=== PATIENT | female | born 1955 | race Caucasian/White ===

== ENCOUNTER 2017-08-26 20:42 | Inpatient (IN) | payer OTHER ==
--- NOTE | 2017-08-26 20:59 | CPEKG ---
Heart Rate: 102 RR Interval: 588 P-R Interval: 172 QRSD Interval: 94 QT Interval: 368 QTC Interval: 480 P [place]: 69 QRS [place]: 172 T Wave [place]: 67 EKG Severity - BORDERLINE ECG - EKG Impression: SINUS TACHYCARDIA EKG Impression: CONSIDER RIGHT VENTRICULAR HYPERTROPHY Electronically Signed By: Eric Saenz 26-Aug-2017 21:26:53
--- NOTE | 2017-08-26 21:09 | EDPHY ---
H & P Stated Complaint: chest pressure and constipation Time Seen by Provider: 08/26/17 21:09 - Personal History Current Tetanus/Diphtheria Vaccine: Yes Current Tetanus Diphtheria and Acellular Pertussis (TDAP): Yes Tetanus Vaccine Date: 2007 - Medical/Surgical History Hx Asthma: No Hx Chronic Respiratory Disease: No Hx Diabetes: No Hx Cardiac Disease: No Hx Renal Disease: No Hx Cirrhosis: No Hx Alcoholism: No Hx HIV/AIDS: No Hx Splenectomy or Spleen Trauma: No Other PMH: appy, hysterectomy, colonectomy, diverticulitis. - Social History Smoking Status: Never smoked Constitutional: Initial Vital Signs Temperature (C) 36.8 C 08/26/17 20:42 Heart Rate 113 H 08/26/17 20:42 Respiratory Rate 18 08/26/17 20:42 Blood Pressure 137/96 H 08/26/17 20:42 O2 Sat (%) 98 08/26/17 20:42 O2 Delivery Mode Room Air Allergies/Adverse Reactions: Sulfa (Sulfonamide Antibiotics) Allergy (Mild, Verified 08/26/17 20:46) Abdominal Pain Home Medications: Medication Instructions Recorded Acetaminophen [Tylenol ES 500 mg 500 mg PO DAILY PRN 08/26/17 (*)] Cholecalciferol Vit D3 [Vitamin D3 1,000 units PO DAILY 08/26/17 (*)] Estradiol [Estradiol 1 MG (*)] 1 mg PO HS 08/26/17 Triamcinolone 0.1% [Triamcinolone 1 robbie TP BID PRN 08/26/17 0.1% Cream (*)] Zolpidem Tartrate [Ambien 5MG (*)] 5 mg PO HS 08/26/17 Medical Decision Making ED Course/Re-evaluation: CHIEF COMPLAINT: Chest pressure HISTORY OF PRESENT ILLNESS: The patient is a 62 y/o female arriving with her complaining of acute onset chest pressure around 19:45, about 1.5 hours ago. She was at home lying in bed and "all the sudden it felt like somebody sat on my chest," She sat up and felt dizzy and lightheaded with associated tingling in her left arm. She's continued to have chest pain and nausea since onset. She has never had these symptoms before and has no known cardiac disease. She denies dyspnea, fever, cough, recent illness, or recent trauma. Apart from recent constipation, she felt normal yesterday. No aspirin or anticoagulant use. REVIEW OF SYSTEMS: A 10 point review of systems was performed and is negative with the exception of the elements mentioned in the history of present illness. PHYSICAL EXAM: HR, BP, O2 Sat, RR. Temp noted General Appearance: Alert, well hydrated, appropriate, and non-toxic appearing. Head: Atraumatic without scalp tenderness or obvious injury Eyes: Pupils equal, round, reactive to light and accommodation, EOMI, no trauma , no injection. Nose: Atraumatic, no rhinorrhea, clear. Throat: Mucus membranes moist. Neck: Supple, nontender, no lymphadenopathy. Respiratory: No retractions, no distress, no wheezes, and no accessory muscle use. Lungs are clear to auscultation bilaterally. Cardiovascular: Regular rate and rhythm, no murmurs, rubs, or gallops. Good capillary refill all extremities. Gastrointestinal: Abdomen is soft, nontender, non-distended, no masses, no rebound, no guarding, no peritoneal signs. Musculoskeletal: Normal active ROM of all extremities, atraumatic. Neurological: Alert, appropriate, and interactive. The patient has non-focal cranial nerves, motor, sensory, and cerebellar exam. Skin: No rashes, good turgor, no nodules on palpation. Past medical history: Diverticulitis Past surgical history: appendectomy, hysterectomy Family history: Mother from CHF, father has no cardiac issues, brother has hypertension Social history: Frequent walks with her dog. , at bedside. Daughter is a 4th-year neurology resident. PCP: [place]. DIAGNOSTICS/PROCEDURES/CRITICAL CARE TIME: The 12 lead EKG was interpreted by myself. Sinus tachycardia, no ischemic changes. See hard copy and/or "tracemaster" electronic copy for interpretation. DIFFERENTIAL DIAGNOSIS: The differential diagnosis for the patient's chest pain included but was not limited to myocardial ischemia, pulmonary embolus, chest wall pain, pleural inflammation, and pulmonary infectious causes. MEDICAL DECISION MAKING: This is a 62 y/o female with no known cardiac risk factors who presents with a 1.5-hour history of significant chest pressure onset while at rest and associated nausea, lightheadedness, and left arm paresthesias. Her exam is unremarkable. Plan for IV, labs, EKG, and 324mg PO aspirin. Recommended admission for observation and provocative cardiac testing, which she agrees to. Troponin negative. EKG shows no ischemic changes. Spoke with hospitalist service. Dr. Cordoba accepts admission. Nitro paste ordered. Reassessed patient. Pain has improved with nitro, but is still present. Additional inch of nitro paste ordered. 2150: Consulted with Dr. Anderson, caser up. She will consult during admission. - Data Points Laboratory Results: Laboratory Results 08/26/17 20:55 08/26/17 20:55 08/26/17 08/26/17 08/26/17 21:09 20:55 20:55 WBC RBC Hgb Hct MCV MCH MCHC RDW Plt Count MPV Neut % (Auto) Lymph % (Auto) Ada % (Auto) Eos % (Auto) Baso % (Auto) Nucleat RBC Rel Count Absolute Neuts (auto) Absolute Lymphs (auto) Absolute Monos (auto) Absolute Eos (auto) Absolute Basos (auto) Absolute Nucleated RBC Immature Gran % Immature Gran # D-Dimer 0.50 ug/mLFEU ug/mLFEU (0.00-0.50) Sodium 137 mEq/L mEq/L (135-145) Potassium 3.6 mEq/L mEq/L (3.3-5.0) Chloride 103 mEq/L mEq/L (97-110) Carbon Dioxide 23 mEq/l mEq/l (22-31) Anion Gap 11 mEq/L mEq/L (8-16) BUN 10 mg/dL mg/dL (7-23) Creatinine 0.6 mg/dL mg/dL (0.6-1.0) Estimated GFR > 60 Glucose 104 mg/dL H mg/dL (70-100) Calcium 9.7 mg/dL mg/dL (8.5-10.4) POC Troponin I 0.00 ng/mL ng/mL (0.00-0.08) NT-Pro-B Natriuret Pep 87 pg/mL pg/mL (0-125) 08/26/17 20:55 WBC 11.77 10^3/uL H 10^3/uL (3.80-9.50) RBC 4.55 10^6/uL 10^6/uL (4.18-5.33) Hgb 14.4 g/dL g/dL (12.6-16.3) Hct 42.0 % % (38.0-47.0) MCV 92.3 fL fL (81.5-99.8) MCH 31.6 pg pg (27.9-34.1) MCHC 34.3 g/dL g/dL (32.4-36.7) RDW 11.9 % % (11.5-15.2) Plt Count 298 10^3/uL 10^3/uL (150-400) MPV 9.4 fL fL (8.7-11.7) Neut % (Auto) 79.0 % H % (39.3-74.2) Lymph % (Auto) 15.6 % % (15.0-45.0) Ada % (Auto) 4.8 % % (4.5-13.0) Eos % (Auto) 0.0 % L % (0.6-7.6) Baso % (Auto) 0.3 % % (0.3-1.7) Nucleat RBC Rel Count 0.0 % % (0.0-0.2) Absolute Neuts (auto) 9.30 10^3/uL H 10^3/uL (1.70-6.50) Absolute Lymphs (auto) 1.84 10^3/uL 10^3/uL (1.00-3.00) Absolute Monos (auto) 0.56 10^3/uL 10^3/uL (0.30-0.80) Absolute Eos (auto) 0.00 10^3/uL L 10^3/uL (0.03-0.40) Absolute Basos (auto) 0.03 10^3/uL 10^3/uL (0.02-0.10) Absolute Nucleated RBC 0.00 10^3/uL 10^3/uL (0-0.01) Immature Gran % 0.3 % % (0.0-1.1) Immature Gran # 0.04 10^3/uL 10^3/uL (0.00-0.10) D-Dimer Sodium Potassium Chloride Carbon Dioxide Anion Gap BUN Creatinine Estimated GFR Glucose Calcium POC Troponin I NT-Pro-B Natriuret Pep Medications Given: Discontinued Medications Aspirin (Aspirin) 324 mg PO EDNOW ONE Stop: 08/26/17 21:16 Last Admin: 08/26/17 21:17 Dose: 324 mg Nitroglycerin (Nitro-Bid 2%) 1 inch TP EDNOW ONE Stop: 08/26/17 21:29 Last Admin: 08/26/17 21:29 Dose: 1 inch Nitroglycerin (Nitro-Bid 2%) 1 inch TP EDNOW ONE Stop: 08/26/17 21:46 Last Admin: 08/26/17 21:46 Dose: 1 inch Point of Care Test Results: Chemistry 08/26/17 21:09 POC Troponin I 0.00 ng/mL ng/mL (0.00-0.08) Departure - Departure Disposition: [facility] Inpatient Acute Clinical Impression: Chest pain Qualifiers: Chest pain type: other chest pain Qualified Code(s): R07.89 - Other chest pain Condition: Fair Report Scribed for: Eric Saenz Report Scribed by: Nikki Miller Date of Report: 08/26/17 Time of Report: 21:15
[2017-08-26] MEDS ORDERED: ASPIRIN 81 MG CHEWABLE TAB PO ONE (21:15)
[2017-08-26] MEDS ORDERED: ASPIRIN 81 MG CHEWABLE TAB ONE (21:16)
[2017-08-26 21:22] LABS: PLATELET COUNT 298 10^3/uL (150-400)
[2017-08-26] MEDS ORDERED: NITROGLYCERIN 2% 1 GM PACKET ONE (21:25)
[2017-08-26] MEDS ORDERED: NITROGLYCERIN 2% 1 GM PACKET TP ONE ×2 (21:28→21:45)
[2017-08-26] MEDS ORDERED: ONDANSETRON DISINTEGRATING 4 MG TAB PO PRN (22:23)
[2017-08-26] MEDS ORDERED: ONDANSETRON 4 MG/2 ML VIAL IVP PRN (22:23)
[2017-08-26] MEDS ORDERED: NS W/ 20 KCl/L 1,000 ML IV SCH (22:30)
[2017-08-26] MEDS ORDERED: LORazepam 0.5 MG TAB PO PRN (22:54)
[2017-08-27] MEDS: ZOLPIDEM TARTRATE 5 MG TAB PO PRN ×2 (00:39→21:34)
[2017-08-27] MEDS ORDERED: MAG HYDROX/AL HYDROX/SIMETH 30 ML UDCUP PO ONE (00:43)
[2017-08-27] MEDS ORDERED: POLYETHYLENE GLYCOL 3350 17 GM PKT PO PRN (00:44)
[2017-08-27] MEDS ORDERED: LACTULOSE 20 GM/30 ML UDCUP PO PRN (00:44)
[2017-08-27] MEDS ORDERED: SENNOSIDES/DOCUSATE SODIUM TAB PO PRN (00:44)
[2017-08-27] MEDS ORDERED: MAGNESIUM HYDROXIDE 30 ML UDCUP PO PRN (00:44)
[2017-08-27] MEDS ORDERED: BISACODYL 10 MG SUPP PR PRN (00:44)
--- NOTE | 2017-08-27 01:00 | PDGENHP ---
History and Physical - Chief Complaint Chest pressure - History of Present Illness Source-patient provides history appears reliable. Source-patient provides history appears reliable. EMR was reviewed and case discussed with accepting hospitalist. HPI-this is a very pleasant 62-year-old female with no significant past medical history who presents emergency department today 1 hr on after onset of central chest pressure. Patient was at rest on the couch watching TV when she had sudden onset of her symptoms. She states it felt like somebody was sitting on her chest. Pain started approximately 1945. Patient reports her pain was 5/10. Patient sat up and developed lightheadedness and dizziness but no vertiginous type symptoms. She additionally had tingling into her left lower arm and hand. This has persisted despite use of nitroglycerin which did help her with her chest pressure bring it down from 5 to 3/10. Patient denies any focal deficits or weakness on the left side. She states that the tingling just feels like pins and needles. Additionally patient reports that over the last several weeks she has been having some issues with traveler's diarrhea. She recently returned 1 week ago from her trip to [facility] in [facility]. Patient did not take any antibiotic therapy she did not have any fevers or chills but has had some cramping abdominal pain which has increased slightly today. She states that she treated herself with [id number] medications. She since had developed some constipation issues. She states she had a large bowel movement earlier this morning without any melena or hematochezia. Patient states that since that time she has had a few "squirts" but no flatus or additional BM. She has had some nausea since onset of chest pressure. No vomiting. She denies any reflux type symptoms. She has no associated diaphoresis but did state that she became chilled. No fevers. In the ED, patient received full dose aspirin as well as placement of nitro paste. Again her pain did decrease slightly to 5 to 3/10 pain. She continues to have numbness tingling in her left arm as noted above. Initial assessment with EKG and cardiac enzymes was nondiagnostic. Patient is on hormone replacement therapy. History Information - Allergies/Home Medication List Allergies/Adverse Reactions: Sulfa (Sulfonamide Antibiotics) Allergy (Mild, Verified 08/26/17 20:46) Abdominal Pain Home Medications: Acetaminophen [Tylenol ES 500 mg (*)] 500 mg PO DAILY PRN 08/26/17 [Last Taken Unknown] Cholecalciferol Vit D3 [Vitamin D3 (*)] 1,000 units PO DAILY 08/26/17 [Last Taken 08/26/17] Estradiol [Estradiol 1 MG (*)] 1 mg PO HS 08/26/17 [Last Taken 08/25/17 22:30] Triamcinolone 0.1% [Triamcinolone 0.1% Cream (*)] 1 robbie TP BID PRN 08/26/17 [ Last Taken Unknown] Zolpidem Tartrate [Ambien 5MG (*)] 5 mg PO HS 08/26/17 [Last Taken 08/25/17] I have personally reviewed and updated: family history, medical history, social history, surgical history - Past Medical History Additional medical history: Estrogen replacement therapy. Remote history of diverticulitis status post partial colectomy and primary reanastomosis. - Surgical History Additional surgical history: Appy, hysterectomy, partial colectomy with primary anastomosis for diverticulitis. - Family History Additional family history: Mother - related to complications of CHF. History of CVA x2. Father-negative history CAD. Brother-HTN - Social History Smoking Status: Never smoked Alcohol Use: Other (One glass of wine daily) Drug Use: None Additional social history: Patient is and lives with . Patient is quite active on a regular basis. Cor status-full. Review of Systems Review of Systems: ROS: 10pt was reviewed & negative except for what was stated in HPI & below Constitutional: Reports: chills (Patient became slightly chilled with onset of her chest pressure but this has resolved.). Denies: diaphoresis, fever EENMT: Reports: no symptoms Cardiac: Reports: chest pain, lightheadedness, other (See HPI). Denies: edema, palpitations, syncope Respiratory: Denies: cough, orthopnea, shortness of breath Gastrointestinal: Reports: abdominal pain, abdominal distention, constipation, diarrhea, nausea. Denies: vomitting, black stools, blood streaked stools Genitourinary: Reports: other (Nocturia multiple times at night at baseline). Denies: dysuria, hematuria Muscolosketal: Reports: no symptoms Skin: Reports: no symptoms Neurological: Reports: tingling (Left forearm and hand all fingers.) Hematologic/Lymphatic: Reports: no symptoms Physical Exam Physical Exam: Selected Entries 08/26/17 20:42 Blood Pressure Automatic Method Heart Rate 113 H Respiratory 18 Rate O2 Sat (%) 98 Temperature (C) 36.8 C Blood Pressure 137/96 H Mean Arterial 109 H Pressure (MAP) O2 Delivery Room Air Mode Temperature Oral Source Temp Pulse Resp BP Pulse Ox 36.6 C 91 16 121/83 H 94 08/26/17 23:22 08/26/17 23:22 08/26/17 23:22 08/26/17 23:22 08/26/17 23:22 Constitutional: no apparent distress, appears nourished, not in pain, other ( NAD. Pleasant adult female is resting comfortably in bed. Patient in good spirits.) Eyes: PERRL, anicteric sclera, EOMI (With vertical testing evaluation patient does developed some lightheadedness and closes her eyes for few seconds.), No scleral injection Ears, Nose, Mouth, Throat: dry mucous membranes (Slightly tacky mucous membranes ), other (No nasal discharge), No poor dentition (Dentition intact) Cardiovascular: regular rate and rhythym, no murmur, rub, or gallop, pulses symmetric bilaterally, No edema Peripheral Pulses: 2+: dorsalis-pedis (R), dorsalis-pedis (L) Respiratory: no respiratory distress, no rales or rhonchi, clear to auscultation , No inspiratory crackles, No respiratory distress Gastrointestinal: normoactive bowel sounds (Normal active to slightly increased. No high-pitched or tinkling sounds.), soft, non-tender abdomen, no palpable masses, distension, No guarding, No rebound Genitourinary: no bladder tenderness, No gann in urethra Skin: warm, normal color, no rashes or abrasions Musculoskeletal: full muscle strength, no muscle tenderness, other (Moves all extremities. Strength intact upper lower extremities. Patient sits up independently.), No generalized weakness Neurologic: AAOx3, sensation intact bilaterally, CN II-XII Intact, No facial droop Psychiatric: interacting appropriately, not anxious, not encephalopathic, thought process linear Lab Data & Imaging Review 08/26/17 20:55 08/26/17 20:55 WBC 11.77 10^3/uL (3.80-9.50) H 08/26/17 20:55 RBC 4.55 10^6/uL (4.18-5.33) 08/26/17 20:55 Hgb 14.4 g/dL (12.6-16.3) 08/26/17 20:55 Hct 42.0 % (38.0-47.0) 08/26/17 20:55 MCV 92.3 fL (81.5-99.8) 08/26/17 20:55 MCH 31.6 pg (27.9-34.1) 08/26/17 20:55 MCHC 34.3 g/dL (32.4-36.7) 08/26/17 20:55 RDW 11.9 % (11.5-15.2) 08/26/17 20:55 Plt Count 298 10^3/uL (150-400) 08/26/17 20:55 MPV 9.4 fL (8.7-11.7) 08/26/17 20:55 Neut % (Auto) 79.0 % (39.3-74.2) H 08/26/17 20:55 Lymph % (Auto) 15.6 % (15.0-45.0) 08/26/17 20:55 [place] % (Auto) 4.8 % (4.5-13.0) 08/26/17 20:55 Eos % (Auto) 0.0 % (0.6-7.6) L 08/26/17 20:55 Baso % (Auto) 0.3 % (0.3-1.7) 08/26/17 20:55 Nucleat RBC Rel Count 0.0 % (0.0-0.2) 08/26/17 20:55 Absolute Neuts (auto) 9.30 10^3/uL (1.70-6.50) H 08/26/17 20:55 Absolute Lymphs (auto) 1.84 10^3/uL (1.00-3.00) 08/26/17 20:55 Absolute Monos (auto) 0.56 10^3/uL (0.30-0.80) 08/26/17 20:55 Absolute Eos (auto) 0.00 10^3/uL (0.03-0.40) L 08/26/17 20:55 Absolute Basos (auto) 0.03 10^3/uL (0.02-0.10) 08/26/17 20:55 Absolute Nucleated RBC 0.00 10^3/uL (0-0.01) 08/26/17 20:55 Immature Gran % 0.3 % (0.0-1.1) 08/26/17 20:55 Immature Gran # 0.04 10^3/uL (0.00-0.10) 08/26/17 20:55 D-Dimer 0.50 ug/mLFEU (0.00-0.50) 08/26/17 20:55 Sodium 137 mEq/L (135-145) 08/26/17 20:55 Potassium 3.6 mEq/L (3.3-5.0) 08/26/17 20:55 Chloride 103 mEq/L (97-110) 08/26/17 20:55 Carbon Dioxide 23 mEq/l (22-31) 08/26/17 20:55 Anion Gap 11 mEq/L (8-16) 08/26/17 20:55 BUN 10 mg/dL (7-23) 08/26/17 20:55 Creatinine 0.6 mg/dL (0.6-1.0) 08/26/17 20:55 Estimated GFR > 60 08/26/17 20:55 Glucose 104 mg/dL (70-100) H 08/26/17 20:55 Calcium 9.7 mg/dL (8.5-10.4) 08/26/17 20:55 POC Troponin I 0.00 ng/mL (0.00-0.08) 08/26/17 21:09 NT-Pro-B Natriuret Pep 87 pg/mL (0-125) 08/26/17 20:55 EKG additional interpertation: Sinus tachycardia 100s. No acute ST changes. QTC of 480. Assessment & Plan Assessment: Pleasant 62-year-old female on HRT and otherwise healthy who presents to the ED 1 hr after onset of substernal chest pressure. #Chest pain (Acute) - DDx including angina vs. reflux/esophagitis vs MSK. ddimer negative although recent history of travel returned a week ago her overall risk score for PE is low. initial ekg and troponin nondiagnostic. will plan to trend enzymes. If negative will consider treadmill stress testing vs additional recommendations from cardiology consulted from ED. Patient HEART score is 1 for chest pain only. Additionally patient is on chronic estrogen replacement therapy. She has no significant family history of early cardiac disease. Patient has however for the past several weeks been experiencing some GI issues. She recently return from a trip to [place] and [facility] and developed traveler's diarrhea. She has been treating symptomatically with over-the- counters. When she returned patient states that she subsequently developed some constipation. She took several suppositories and enema without significant BM since her BM this AM. She has also noted increasing abdominal cramping and abdominal distension. Patient reports that she has had small "squirts" last being this afternoon and a large bowel movement early in the morning. Her appetite has been decreased. She has had some nausea but no vomiting but has not had significant oral intake and did attempt to have some food since arrival to the floor. Will monitor clinically consider KUB as patient does have a history of partial colectomy for potential bowel obstruction. Will go ahead and treat with oral GI meds including a dose of Maalox. Patient declines use of lidocaine in GI cocktail. Bowel regimen has been ordered. #abdominal pain - abdominal cramping and history of travel diarrhea solved with constipation. Patient does have slight leukocytosis just slightly below 12K. she is afebrile. Plan as noted above. Patient reports history of nocturia at baseline. No additional urinary symptoms or fever will not further evaluate with UA at this time unless symptoms change. #HRT - patient without further perimenopausal symptoms but was continued by her report with history of diverticulitis. Will need to further consider risk/ benefit based on cardiac evaluation as above. #Left arm paresthesia - patient with negative Tinel's sign for cubital tunnel or carpal tunnel sx. Remainder of neurologic assessment is otherwise negative. Strength in her left arm and hand are intact. #insomnia - ambien prn. FEN - patient with the overall poor appetite at this time and some nausea. Will continue with normal saline plus potassium given current K of 3.6. Patient was able to tolerate a little bit of a diet this evening. She will be made NPO after midnight. PPx - SCDs. Patient overall moderate risk. Will encourage ambulation short hospital stay initiate anticoagulation at this time. COR - FULL Disposition - Patient admitted to observation on PCU for close cardiac monitoring.
[2017-08-27] MEDS: ACETAMINOPHEN 325 MG TAB PO PRN ×2 (05:44→21:34)
[2017-08-27] MEDS ORDERED: NS 1,000 ML IV ONE (09:06)
[2017-08-27 10:06] LABS: PLATELET COUNT 265 10^3/uL (150-400)
--- NOTE | 2017-08-27 11:03 | GCON ---
[f rep st] CONSULTATION DATE OF CONSULTATION: 08/27/2017 CHIEF COMPLAINT: We have been asked by Dr. Miranda to evaluate the patient with a chief complaint of chest pain. HISTORY OF PRESENT ILLNESS: Patient is a 62-year-old female with limited cardiac risk factors, who p resents with a chief complaint of chest pain. The patient was in her usual state of health until the day of admission when she began to experience chest pain described as a pressure extending across he r chest. The chest discomfort was associated with tingling in her left hand. When her symptoms did not improve, she presented to the emergency department for further evaluation. Her initial EKG demon strated no acute ST or T-wave changes. Her initial troponin was within normal limits. The patient w as treated with nitroglycerin with improvement but not resolution of her symptoms. We have been aske d to help in the further management of this patient. The patient denies a previous history of navarro ry artery disease. She denies hypertension, hyperlipidemia diabetes and tobacco use. The patient re kristie active walking on a regular basis. She denies symptoms of chest discomfort with this activity. PAST MEDICAL HISTORY: 1. Status post total abdominal hysterectomy. 2. Status post partial colectomy. 3. Status post appendectomy. MEDICATIONS: 1. Vitamin D3. 2. Estradiol. 3. Triamcinolone. 4. Zolpidem. ALLERGIES: Sulfa. SOCIAL HISTORY: The patient does not smoke. She has approximately 1 glass of wine per day. She is . She lives with her . She remains active walking her dog on a regular basis. FAMILY HISTORY: Notable for cerebral vascular accident and hypertension. REVIEW OF SYSTEMS: 10-point review of systems is notable for recent diarrhea, followed by constipati on, following a trip to [facility] and [facility]. PHYSICAL EXAMINATION: GENERAL: The patient is resting in bed. She does not appear to be in acute d istress. VITAL SIGNS: Temperature is afebrile. Pulse is 77, blood pressure 98/67, respiratory rate is 16, SaO2 is 91% on room air. HEENT: Normocephalic, atraumatic. Extraocular muscles intact. NE CK: No JVD. No bruits. LUNGS: Clear to auscultation bilaterally. CARDIOVASCULAR: Regular rate a nd rhythm. S1, S2. No murmurs, rubs, or gallops appreciated. ABDOMEN: Soft, nontender. Increased bowel sounds. No hepatosplenomegaly noted. EXTREMITIES: No clubbing, cyanosis, or edema. SKIN: No evidence of rashes. NEURO: Patient is awake, alert, and oriented x3. LABORATORY: White blood cell count is 8.49, hemoglobin 12.2, hematocrit 36.8, platelet count 265, D- dimer 0.5, sodium 137, potassium 3.6, chloride 103, CO2 23, BUN 10, creatinine 0.6. Initial troponin 0.00. Followup troponin less than 0.012. BNP is 87. EKG demonstrates sinus rhythm with no acute ST or T-wave changes. ASSESSMENT AND PLAN: The patient is a 62-year-old female with limited cardiac risk factors, who pres ents with several hours of chest pain followed by multiple hours of low level chest pain. Her EKG de monstrates no acute ST or T-wave changes. Her troponins are within normal limits x2. Reviewed optio ns for risk stratification including stress testing, cardiac catheterization, and CT angiography. Th e patient wishes to pursue CT angiography, will arrange to have this performed. /[id number]/MODL
--- NOTE | 2017-08-27 12:28 | HOSPPROG ---
Hospitalist Progress Note Assessment/Plan: # chest pain - ct coronary today - appreciate Dr Burleson's help # SBO - suspect low grade given history and exam; she has had multiple abd surgeries in the past - clears today - CT abd/pelvis - will consult surgery if not improving tomorrow # L arm paraesthesias - unclear if related to chest pain Subjective: no BM today; ongoing crampy abd pain; no BM today, small hard stools yesterday Objective: Vital Signs Temp Pulse Resp BP Pulse Ox 36.6 C 76 14 111/64 91 L 08/27/17 11:17 08/27/17 11:17 08/27/17 11:17 08/27/17 11:17 08/27/17 11:17 Laboratory Results 08/27/17 09:35 08/27/17 07:30 08/26/17 08/27/17 08/28/17 05:59 05:59 05:59 Intake Total 562.5 Output Total 0 Balance 562.5 chart reviewed discussed with Dr Burleson AXR, CXR personally reviewed - Physical Exam Constitutional: no apparent distress, appears nourished Cardiovascular: regular rate and rhythym, no murmur, rub, or gallop Respiratory: no respiratory distress, no rales or rhonchi, clear to auscultation Gastrointestinal: normoactive bowel sounds, other (soft, very mild TTP RLQ), No guarding, No rebound, No distension ICD10 Worksheet Patient Problems: Problems Problem Status Onset Chest pain Acute
[2017-08-27] MEDS ORDERED: LR 1,000 ML IV SCH (12:30)
[2017-08-27] MEDS ORDERED: METOPROLOL TARTRATE 50 MG TAB PO ONE (12:45)
--- NOTE | 2017-08-27 15:01 | ASMTCMCOM ---
CM Note CM Note Notes: 08/27/2017 Case Management Note Reviewed chart, discussed with RN. Pt admitted for assessment of chest pain. There are no case management d/c needs identified d/t pt age, employment status, marital status and activity levels prior to admission. There are no PT or OT evals ordered at this time. Case Management d/c poc: independent with follow up as directed. Case Management available if needs change. Date Signed: 08/27/2017 03:00 PM Electronically Signed By:Johnna Anna RN
--- NOTE | 2017-08-27 15:13 | PDMN ---
Medical Necessity Medical necessity: Pt meets inpt criteria per MD order and MCG M-210, intestinal obstruction. Pt presented to ER w/chest pain, L arm parasthesias, nausea, abd cramping and distension, recent out of country travel, hx of abd surgeries. Cardiology consult: CT angiography and ECHO pending, CT abd/pelvis pending, status change to inpt 08/27 @ 1224 for further workup, monitoring, and treatment.
[2017-08-27] MEDS ORDERED: IOPAMIDOL (ISOVUE 370) 100 ML BTL IV ONE (18:43)
[2017-08-27] MEDS ORDERED: METOPROLOL TARTRATE 5 MG/5 ML INJ ONE (18:43)
[2017-08-27] MEDS ORDERED: NITROGLYCERIN 0.4 MG BTL SL ONE (19:38)
[2017-08-28 05:29] LABS: PLATELET COUNT 240 10^3/uL (150-400)
[2017-08-28] MEDS: ACETAMINOPHEN 325 MG TAB PO PRN (07:57)
--- NOTE | 2017-08-28 09:04 | ECHO ---
[email or web address] [address] Main: [phone] Fax: Transthoracic Echocardiogram Name: DU RAZO MR#: [id number] Study Date: 08/27/2017 Study Time: 02:39 PM Date of : 1955 Age: 62 year(s) Height: 165.1 cm (65 in.) Weight: 62.14 kg (137 lb.) BSA: 1.68 m2 Gender: Female Examination: Echo Indication: Chest Pain Image Quality: Adequate Contrast: Requested by: Brent Miranda BP: 111 mmHg/64 mmHg Heart Rate: Rhythm: Indication: Chest Pain Procedure Staff Salesperson Meats: Vidya Sauer [facility] Reading Physician: Emmanuel Rdz MD Requesting Provider: Conclusions: Normal size left ventricle. No LV hypertrophy. Normal global systolic LV function. EF is 64 %. No regional wall motion abnormality. Normal diastolic LV function. Borderline dilated RV. The mitral valve is normal in appearance and function. Mild mitral valve regurgitation is present. There is no significant aortic valve regurgitation. No aortic valve stenosis is present. Mild tricuspid regurgitation is present. The pulmonary artery pressure is normal. Right ventricular systolic pressure measures 15mmHg. Normal size ascending aorta measuring 3.6 cm. No previous Measurements: Chambers Valvular Assessment AV/MV Valvular Assessment TV/PV Normal Normal Normal Name Value Range Name Value Range Name Value Range Ao Denisa (2D): 3.2 cm (1.4 cm-2.6 AV Vmax: 1.06 m/s (1 m/s-1.7 TR Vmax: 1.55 mm/s ( - ) cm) m/s) TR PGmax: 10 mmHg ( - ) IVSd (2D): 0.8 cm (0.6 cm-1.1 AV maxP mmHg ( - ) syst. PAP: 15 mmHg ( - ) cm) AV meanP mmHg ( - ) PV Vmax: 0.58 m/s (0.6 m/s-0.9 LVDd (2D): 4.4 cm (3.9 cm-5.3 FELIPE (VTI): 2.2 cm ( - ) m/s) cm) MV E Vmax: 0.84 m/s ( - ) PV PGmax: 1 mmHg ( - ) LVDs (2D): 3.0 cm (2.1 cm-4 MV A Vmax: 0.75 m/s ( - ) cm) MV E/A: 1.12 ( - ) LVPWd (2D): 0.8 cm ( - ) MV PHT: 0.064 s ( - ) Patient: DU ARZO Study Date: 08/27/2017 Page 1 of 2 02:39 PM LVOTd 1.9 cm 1.9 cm mm MVA (PHT): 3.4 s ( - ) LVEF (BP): 64 % (>=55 %) RVDd(2D): 3.2 cm (1.9 cm-3.8 cmmm) Continued Measurements: Chambers Valvular Assessment AV/MV Valvular Assessment TV/PV Name Value Name Value Name Value LADs: 2.7 cm MV DecTime: 208 m/s CVP (est.): 5 mmHg LADs Lon.0 cm MV E' Septal: 0.07 m/s LA Area: 16.0 cm2 MV E/E' Septal: 11.30 LA Volume: 39 ml MV E/E' Lateral: 7.90 LA Volume Index: 23.2 ml/m2 RA Area: 16.3 cm2 Additional Vessels Name Value Ao Ascendin.6 cm Inferior Vena Cava: 1.3 cm Findings: Left Ventricle: Normal size left ventricle. No LV hypertrophy. Normal global systolic LV function. EF is 64 %. No regional wall motion abnormality. Normal diastolic LV function. Right Ventricle: Normal RV function. Borderline dilated RV. Left Atrium: The left atrium is normal in size. Right Atrium: The right atrium is normal in size. Mitral Valve: The mitral valve is normal in appearance and function. Mild mitral valve regurgitation is present. No mitral stenosis is present. Aortic Valve: The aortic valve is tri-leaflet. There is no significant aortic valve regurgitation. No aortic valve stenosis is present. Tricuspid Valve: The tricuspid valve is normal in appearance and function. Mild tricuspid regurgitation is present. The pulmonary artery pressure is normal. Right ventricular systolic pressure measures 15mmHg. Pulmonic Valve: The pulmonic valve is normal in appearance and function. There is no pulmonic regurgitation seen. Aorta: The aorta is normal. Normal size aortic root measuring 3.2 cm. Normal size ascending aorta measuring 3.6 cm. IVC: The IVC is normal sized. Pericardium: No pericardial effusion. No pleural effusion. (No Signature Object) Patient: DU RAZO Study Date: 08/27/2017 Page 2 of 2 02:39 PM [id number]
--- NOTE | 2017-08-28 09:45 | HOSPPROG ---
Hospitalist Progress Note Assessment/Plan: # abd issues - no SBO on CT but possible GB wall thickening; US with significant cholelithiasis, no cholecystitis - discussed with Dr Mcfarland - may be a candidate for cholecystectomy # chest pain - cardiac w/u negative; possibly chest wall pain? also consider referred pain from GB # L arm paraesthesias - unclear if related to chest pain Subjective: abd pain improved; chest pressure still present Objective: Vital Signs Temp Pulse Resp BP Pulse Ox 36.6 C 68 18 126/80 H 94 08/28/17 07:44 08/28/17 07:44 08/28/17 07:44 08/28/17 07:44 08/28/17 07:44 Laboratory Results 08/28/17 05:00 08/28/17 05:00 08/27/17 08/28/17 08/29/17 05:59 05:59 05:59 Intake Total [address], US reviewed discussed with Dr Mcfarland - Physical Exam Constitutional: no apparent distress, appears nourished Cardiovascular: regular rate and rhythym, no murmur, rub, or gallop Respiratory: no respiratory distress, no rales or rhonchi, clear to auscultation Gastrointestinal: soft, non-tender abdomen, no palpable masses, No tenderness, No collins's sign, No distension ICD10 Worksheet Patient Problems: Problems Problem Status Onset Chest pain Acute
[2017-08-28] MEDS ORDERED: ceFAZolin 1 GM/5 ML SYR ONE (12:09)
[2017-08-28] MEDS ORDERED: HEPARIN 1000 UNIT/1 ML MDV ONE (12:09)
[2017-08-28] MEDS ORDERED: BUPIVACAINE 0.25% 30 ML SDV ONE (12:09)
[2017-08-28] MEDS ORDERED: LR 1,000 ML IV ONE (12:39)
--- NOTE | 2017-08-28 12:39 | PDANEPAE ---
ANE History of Present Illness here for lap mp ANE Past Medical History - Cardiovascular History Hx Hypertension: No Hx Arrhythmias: No Hx Coronary Artery / Peripheral Vascular Disease: No - Pulmonary History Hx Oxygen in Use at Home: No Hx Sleep Apnea: No Sleep Apnea Screening Result - Last Documented: Negative - Endocrine History Hx Diabetes: No - Chronic Pain History Chronic Pain: No ANE Review of Systems Review of Systems: - Exercise capacity Exercise capacity: >=4 METS ANE Patient History - Allergies Allergies/Adverse Reactions: Sulfa (Sulfonamide Antibiotics) Allergy (Mild, Verified 08/26/17 20:46) Abdominal Pain - Home Medications Home Medications: Acetaminophen [Tylenol ES 500 mg (*)] 500 mg PO DAILY PRN 08/26/17 [Last Taken Unknown] Cholecalciferol Vit D3 [Vitamin D3 (*)] 1,000 units PO DAILY 08/26/17 [Last Taken 08/26/17] Estradiol [Estradiol 1 MG (*)] 1 mg PO HS 08/26/17 [Last Taken 08/25/17 22:30] Triamcinolone 0.1% [Triamcinolone 0.1% Cream (*)] 1 robbie TP BID PRN 08/26/17 [ Last Taken Unknown] Zolpidem Tartrate [Ambien 5MG (*)] 5 mg PO HS 08/26/17 [Last Taken 08/25/17] - NPO status NPO Since - Liquids (Date): 08/28/17 NPO Since - Liquids (Time): 00:00 NPO Since - Solids (Date): 08/28/17 NPO Since - Solids (Time): 00:00 - Anes Hx Anes Hx: no prior problems - Smoking Hx Smoking Status: Never smoked - Alcohol Use Alcohol Use: Other (One glass of wine daily) - Family Anes Hx Family Anes Hx: none ANE Labs/Vital Signs - Labs Result Diagrams: 08/28/17 05:00 08/28/17 05:00 - Vital Signs Blood Pressure: 126/80 Heart Rate: 68 Respiratory Rate: 18 O2 Sat (%): 94 Height: 165.1 cm Weight: 62.142 kg ANE Physical Exam - Airway Neck exam: FROM Mallampati Score: Class 2 Mouth exam: normal dental/mouth exam - Pulmonary Pulmonary: no respiratory distress, clear to auscultation - Cardiovascular Cardiovascular: regular rate and rhythym, no murmur, rub, or gallop - ASA Status ASA Status: II ANE Anesthesia Plan Anesthesia Plan: general endotracheal anesthesia
[2017-08-28] MEDS ORDERED: MIDAZOLAM 2 MG/2 ML VIAL IVP ONE (12:41)
[2017-08-28] MEDS ORDERED: fentaNYL 100 MCG/2 ML INJ ONE ×2 (12:47→14:45)
[2017-08-28] MEDS ORDERED: LIDOCAINE 2% 100 MG/5 ML SYR ONE (12:47)
[2017-08-28] MEDS ORDERED: PROPOFOL 200 MG/20 ML VIAL ONE ×2 (12:47→14:13)
[2017-08-28] MEDS ORDERED: ROCURONIUM 50 MG/5 ML VIAL ONE (12:47)
[2017-08-28] MEDS ORDERED: cefOXitin SODIUM 2 GM in NS 100 ML IV ONE (13:11)
[2017-08-28] MEDS ORDERED: PROMETHAZINE HCL 25 MG/ML INJ IVP PRN (14:37)
[2017-08-28] MEDS ORDERED: NALOXONE HCL 0.4 MG/ML INJ IVP PRN (14:37)
[2017-08-28] MEDS ORDERED: oxyCODONE IR 5 MG TAB PO PRN ×2 (14:37→17:14)
[2017-08-28] MEDS ORDERED: ACETAMINOPHEN 500 MG TAB PO PRN (14:37)
[2017-08-28] MEDS ORDERED: HYDROCODONE/APAP 5/325 TAB PO PRN ×2 (14:37→17:14)
--- NOTE | 2017-08-28 14:37 | POSTANESTH ---
Post Anesthetic Evaluation Cardiovascular Status: Normal, Stable, Similar to Pre-Op Cond Respiratory Status: Normal, Stable, Similar to Pre-op Cond. Level of Consciousness/Mental Status: Can Participate in Eval, Alert and Oriented Pain Control: Adequate, Prn Tx Ordered Nausea/Vomiting Control: Adequate, Prn Tx Ordered Complications Possibly Related to Anesthesia: None Noted
[2017-08-28] MEDS: fentaNYL 100 MCG/2 ML INJ IVP PRN ×2 (14:47→15:09)
--- NOTE | 2017-08-28 15:01 | POSTOPPROG ---
Post Op Note Date of Operation: 08/28/17 Surgeon: Emmanuel Mcfarland Anesthesiologist: MALE IT Anesthesia: GET(General Endotracheal) Pre-op Diagnosis: CHOLELITHIASIS AND CHOLECYSTITIS Post-op Diagnosis: CHOLELITHIASIS AND CHOLECYSTITIS Indication: PAIN Procedure: LAP CHOLY Findings: CHRONICALLY SCARRED DOWN GALLBLADDER WITH MULTIPLE STONES AND SHORT DUCT Inf/Abcess present in the surg proc area at time of surgery?: Yes Depth: Organ Space EBL: Minimal Complications: NONE Specimen(s): GALLBLADDER
[2017-08-28] MEDS ORDERED: HYDROmorphONE/DILAUDID 1 MG/ML INJ IVP PRN (15:07)
[2017-08-28] MEDS ORDERED: D5W 1/2 NS W/ 20 KCl/L 1,000 ML IV SCH (15:15)
--- NOTE | 2017-08-28 15:37 | ASMTCMCOM ---
CM Note CM Note Notes: 08/28/2017 Case Management Note Discussed pt during rounds this morning. Mook Marmolejo can be reached at [phone]. Pt to have gallbladder removed today by Shantanu Mcfarland. Case Management d/c poc: anticipating independent with follow up as directed. Case Management to follow. Date Signed: 08/28/2017 03:37 PM Electronically Signed By:Johnna Anna RN
[2017-08-28] MEDS: KETOROLAC 15 MG/1 ML SDV IVP SCH ×2 (17:04→23:07)
[2017-08-28] MEDS ORDERED: traMADol 50 MG TAB PO PRN (17:14)
[2017-08-28] MEDS: cefOXitin SODIUM 1 GM in NS 50 ML IV SCH ×2 (17:58→23:06)
--- NOTE | 2017-08-28 18:34 | GOP ---
[f rep st] OPERATIVE REPORT DATE OF OPERATION: 08/28/2017 SURGEON: Emmanuel Mcfarland MD PREOPERATIVE DIAGNOSIS: Cholelithiasis and cholecystitis. POSTOPERATIVE DIAGNOSIS: Cholelithiasis and cholecystitis. PROCEDURE PERFORMED: Laparoscopic cholecystectomy. FINDINGS: The patient was found to have a gallbladder packed with gallstones with chronic subacute c holecystitis with multiple intraabdominal adhesions from previous surgery. ESTIMATED BLOOD LOSS: Negligible. DESCRIPTION OF PROCEDURE: The patient was taken to the operating room where she received a satisfact ory general endotracheal anesthesia by Dr. Nix. Placed in the supine position, prepped and draped in the usual sterile fashion. An epigastric incision was made, and a Veress needle was inserted. Pn eumoperitoneum was established. Trocar was introduced. Laparoscope introduced. Adequate visualizat ion was obtained. A clear space was identified in the periumbilical area and a 2nd incision was made . A 5 mm trocar was introduced, and the laparoscope was moved down to that position. Two other troc ars were placed laterally under direct vision. Adhesions were then taken down until the gallbladder could be completely exposed. The transverse colon was freed up away from the gallbladder as was the duodenum. The gallbladder was completely obscured upon entering the abdomen with adhesions to the li emanuel. The gallbladder was elevated up. It contained multiple stones. Cystic triangle was carefully dissected free. The cystic duct was identified. It was relatively short, but dissected free and mul tiply hemoclipped and divided after a good clear view was obtained with the cystic artery also being dissected out and exposed. The common duct was identified and spared from injury and the cystic sivan ry was also multiply hemoclipped and divided. The peritoneum of the gallbladder was incised. The ga llbladder was dissected free from the bed and hepatic fossa, and extracted through the upper midline port site. Hemostasis was assured with electrocautery. The wound was irrigated, trocars removed und er direct vision. Trocar sites were closed with 0 Vicryl for the fascia, 4-0 Monocryl subcuticular s titch for the skin, and all layers infiltrated with 0.5% Marcaine. COMPLICATIONS: None. Taken to recovery room in good condition. /[id number]/MODL
[2017-08-28] MEDS ORDERED: NS 500 ML IV ONE (21:52)
[2017-08-28] MEDS: ZOLPIDEM TARTRATE 5 MG TAB PO PRN (23:07)
--- NOTE | 2017-08-28 23:23 | SOAPPROG ---
SOAP Progress Note Assessment/Plan: Assessment: 62-YEAR-OLD FEMALE WELL KNOWN TO ME WHO PRESENTS WITH CHEST PAIN AND EPIGASTRIC PAIN. SHE HAS HISTORY OF INTERMITTENT GI SYMPTOMS INCLUDING DIARRHEA ON BLOATING AND NAUSEA GALLBLADDER ULTRASOUND REVEALS MULTIPLE LARGE STONES PACKED IN THE GALLBLADDER. LFTS ARE NORMAL. PAST HISTORY INCLUDES A COLECTOMY FOR DIVERTICULITIS AND AN APPENDECTOMY REVIEW OF SYSTEMS IS NEGATIVE ON A FULL 10 POINT REVIEW. CARDIAC WORKUP ON THIS ADMISSION WAS COMPLETELY NEGATIVE FAMILY HISTORY NONCONTRIBUTORY ALLERGIES ARE SULFA MEDICATIONS ARE LISTED IN THE CHART HEENT NONICTERIC WITHOUT ADENOPATHY CHEST CLEAR COR REGULAR RHYTHM ABDOMEN SOFT AND NONTENDER WITHOUT MASSES OR ORGANOMEGALY EXTREMITIES FULL RANGE OF MOTION FULL PULSES NO EDEMA NEURO EXAM PHYSIOLOGIC PSYCH EXAM ALERT ORIENTED AND COOPERATIVE GENERAL: ALERT, AFEBRILE AND NO ACUTE DISTRESS IMPRESSION SYMPTOMATIC GALLSTONES AND CHRONIC CHOLECYSTITIS Plan: RECOMMEND LAP CHOLY. RISKS AND OPTIONS BEEN FULLY DISCUSSED. I DO NOT THINK THERE IS ANY NEED FOR A HIDA SCAN AT THIS POINT 08/28/17 23:20 Objective: Vital Signs Temp Pulse Resp BP Pulse Ox 36.7 C 93 12 103/66 94 08/28/17 23:06 08/28/17 23:06 08/28/17 23:06 08/28/17 23:06 08/28/17 23:06 Laboratory Results 08/28/17 22:45 08/28/17 05:00 08/27/17 08/28/17 08/29/17 05:59 05:59 05:59 Intake Total 440 1550 Output Total 15 Balance 440 1535 ICD10 Worksheet Patient Problems: Problems Problem Status Onset Chest pain Acute
[2017-08-29] MEDS ORDERED: NS 500 ML IV ONE (03:02)
[2017-08-29] MEDS: NS 1,000 ML IV SCH ×2 (03:11→16:48)
--- NOTE | 2017-08-29 03:18 | CPEKG ---
Heart Rate: 109 RR Interval: 550 P-R Interval: 164 QRSD Interval: 94 QT Interval: 340 QTC Interval: 458 P [place]: 60 QRS [place]: 91 T Wave [place]: 54 EKG Severity - BORDERLINE ECG - EKG Impression: SINUS TACHYCARDIA EKG Impression: CONSIDER RIGHT VENTRICULAR HYPERTROPHY Electronically Signed By: Joe Fournier 29-Aug-2017 09:23:49
--- NOTE | 2017-08-29 03:56 | HOSPPROG ---
Hospitalist Progress Note Assessment/Plan: Hospitalist night float note Notified by RN that patient has continued to have some orthostatic symptoms and concerns for nonsustained SVT. Earlier this evening patient had 2 episodes of vagal response getting up to the bathroom. Patient received some IV fluids with improvement of her blood pressures. She has continued to have some symptoms with movement and so has been on modified best bed rest electively. Patient underwent lap cholecystectomy this afternoon. She is afebrile. She continues to have the same chest discomfort she experienced upon admission this has not changed or worsened. She denies any dyspnea. Patient currently receiving additional 500 cc bolus of normal saline and then will plan to continue at rate of 125 mL/hour. RN notes that patient's oral intake has been minimal and her urine is quite concentrated. Earlier in the shift patient when patient was experiencing her vagal symptoms. H&H and troponin were obtained. Patient's blood count has drop down slightly. Troponin was negative. A.m. Labs are in process and will monitor H&H. EKG has been ordered and pending. Telemetry was reviewed and patient is in sinus tach in the 90s. Objective: Vital Signs Temp Pulse Resp BP Pulse Ox 36.7 C 142 H 12 103/66 94 08/28/17 23:06 08/29/17 03:00 08/28/17 23:06 08/28/17 23:06 08/28/17 23:06 Laboratory Results 08/28/17 22:45 08/28/17 05:00 08/27/17 08/28/17 08/29/17 05:59 05:59 05:59 Intake Total 440 9386 Output Total 15 Balance 440 6506 ICD10 Worksheet Patient Problems: Problems Problem Status Onset Chest pain Acute
[2017-08-29 04:38] LABS: PLATELET COUNT 206 10^3/uL (150-400)
[2017-08-29] MEDS: cefOXitin SODIUM 1 GM in NS 50 ML IV SCH ×2 (06:23→12:57)
[2017-08-29] MEDS: KETOROLAC 15 MG/1 ML SDV IVP SCH ×4 (06:23→23:50)
--- NOTE | 2017-08-29 08:07 | SOAPPROG ---
SOAP Progress Note Assessment/Plan: Assessment: 62-YEAR-OLD FEMALE WELL KNOWN TO ME WHO PRESENTS WITH CHEST PAIN AND EPIGASTRIC PAIN. SHE HAS HISTORY OF INTERMITTENT GI SYMPTOMS INCLUDING DIARRHEA ON BLOATING AND NAUSEA GALLBLADDER ULTRASOUND REVEALS MULTIPLE LARGE STONES PACKED IN THE GALLBLADDER. LFTS ARE NORMAL. PAST HISTORY INCLUDES A COLECTOMY FOR DIVERTICULITIS AND AN APPENDECTOMY REVIEW OF SYSTEMS IS NEGATIVE ON A FULL 10 POINT REVIEW. CARDIAC WORKUP ON THIS ADMISSION WAS COMPLETELY NEGATIVE FAMILY HISTORY NONCONTRIBUTORY ALLERGIES ARE SULFA MEDICATIONS ARE LISTED IN THE CHART HEENT NONICTERIC WITHOUT ADENOPATHY CHEST CLEAR COR REGULAR RHYTHM ABDOMEN SOFT AND NONTENDER WITHOUT MASSES OR ORGANOMEGALY EXTREMITIES FULL RANGE OF MOTION FULL PULSES NO EDEMA NEURO EXAM PHYSIOLOGIC PSYCH EXAM ALERT ORIENTED AND COOPERATIVE GENERAL: ALERT, AFEBRILE AND NO ACUTE DISTRESS IMPRESSION SYMPTOMATIC GALLSTONES AND CHRONIC CHOLECYSTITIS Plan: RECOMMEND LAP CHOLY. RISKS AND OPTIONS BEEN FULLY DISCUSSED. I DO NOT THINK THERE IS ANY NEED FOR A HIDA SCAN AT THIS POINT 08/28/17 23:20 08/29/17 08:06 wounds ok/ vs stable/ afebrile/ hct down to 27/ will follow Objective: Vital Signs Temp Pulse Resp BP Pulse Ox 37.1 C 97 16 98/61 L 94 08/29/17 04:29 08/29/17 04:29 08/29/17 04:29 08/29/17 04:29 08/29/17 04:29 Laboratory Results 08/29/17 04:06 08/28/17 05:00 08/28/17 08/29/17 08/30/17 05:59 05:59 05:59 Intake Total 440 2908 Output Total 15 Balance 440 8880 ICD10 Worksheet Patient Problems: Problems Problem Status Onset Chest pain Acute
--- NOTE | 2017-08-29 09:43 | HOSPPROG ---
Hospitalist Progress Note Assessment/Plan: 62 F presented with CP; cardiac w/u negative. Also complained of abdominal issues. Significant burden of cholelithiasis identified - now s/p cholecystectomy. Hypotensive and tachycardic overnight. # hypotension/tachycardia - likely hypovolemic; PE less likely given her ambulatory status - cont IVF; check BMP # ABLA - hgb down to 8.8 today - recheck at noon; discussed possible transfusion # cholelithiasis - given the significant stone burden, she is s/p cholecystectomy POD#1 # chest pain - cardiac w/u negative; suspect chest wall pain # L arm paraesthesias - unlikely related to chest pain # DVT ppx - SCDs; hold pharm with falling hgb Subjective: episode of confusion and tachycardia last night Objective: Vital Signs Temp Pulse Resp BP Pulse Ox 36.9 C 105 H 16 102/68 93 08/29/17 08:36 08/29/17 08:36 08/29/17 08:36 08/29/17 08:36 08/29/17 08:36 Laboratory Results 08/29/17 04:06 08/28/17 05:00 08/28/17 08/29/17 08/30/17 05:59 05:59 05:59 Intake Total 440 2900 Output Total 15 Balance 440 2885 - Physical Exam Constitutional: no apparent distress, appears nourished Cardiovascular: no murmur, rub, or gallop, tachycardia Respiratory: no respiratory distress, no rales or rhonchi Gastrointestinal: other (BS, soft, ) ICD10 Worksheet Patient Problems: Problems Problem Status Onset Chest pain Acute
[2017-08-29] MEDS: ZOLPIDEM TARTRATE 5 MG TAB PO PRN (22:46)
[2017-08-30 03:58] LABS: PLATELET COUNT 191 10^3/uL (150-400)
[2017-08-30] MEDS: KETOROLAC 15 MG/1 ML SDV IVP SCH ×2 (06:11→14:14)
--- NOTE | 2017-08-30 13:09 | HOSPPROG ---
Hospitalist Progress Note Assessment/Plan: 62 F presented with CP; cardiac w/u negative. Also complained of abdominal issues. Significant burden of cholelithiasis identified - now s/p cholecystectomy. # hypotension/tachycardia - likely hypovolemic; resolved with prbc transfusion - low threshold for CTA to r/o PE if symptoms recur # ABLA - hgb down to 7.4 from 14 - 1 u prbc's and recheck h&h this afternoon # cholelithiasis - s/p cholecystectomy POD #2 - surgery following # chest pain - cardiac w/u negative; d dimer neg on arrival. # L arm paraesthesias - unlikely related to chest pain # DVT ppx - SCDs; hold pharm with falling hgb. She is ambulating well. Subjective: Pt feels well. Denies CP or SOB. No abdominal pain. +BM. Objective: Vital Signs Temp Pulse Resp BP Pulse Ox 37.1 C 67 12 127/79 H 96 08/30/17 11:49 08/30/17 11:49 08/30/17 11:49 08/30/17 11:49 08/30/17 11:49 Laboratory Results 08/30/17 03:41 08/30/17 03:41 08/29/17 08/30/17 08/31/17 05:59 05:59 05:59 Intake Total 2900 2416 1700 Output Total 15 300 Balance 2885 2116 1700 - Physical Exam Constitutional: no apparent distress Eyes: PERRL Ears, Nose, Mouth, Throat: moist mucous membranes Cardiovascular: regular rate and rhythym Respiratory: no respiratory distress, clear to auscultation Gastrointestinal: normoactive bowel sounds, soft, non-tender abdomen, other ( small hematoma surrounding incisions) Skin: normal color Musculoskeletal: full muscle strength Neurologic: AAOx3 Psychiatric: interacting appropriately ICD10 Worksheet Patient Problems: Problems Problem Status Onset Chest pain Acute
[2017-08-30] MEDS ORDERED: TRANEXAMIC ACID 1,000 MG in NS 100 ML IV ONE (15:33)
--- NOTE | 2017-08-30 16:43 | SOAPPROG ---
SOAP Progress Note Assessment/Plan: Assessment: 62 y/o F s/p lap mp S: Feeling well, although concerned about paroxysmal tachycardia. Her daughter is an MD in another state and is concerned about PE. Denies chest pain and heart palpitations. Tolerating regular diet, passing gas and BMs. Pain well controlled. Denies nausea/vomiting. O: Alert Afebrile Hct down to 22 this am, up to 30 after 1uPRBC transfusion RRR No increased WOB Abdomen: soft, mildly ttp, normoactive bowel sounds, incisions cdi, one moderately sized area of ecchymosis without firmness. Plan: Pt did have D-dimer drawn several days ago that was WNL, doubt PE. From a surgical standpoint, pt is doing well and can be discharged. 08/30/17 16:38 Objective: Vital Signs Temp Pulse Resp BP Pulse Ox 36.8 C 91 16 143/96 H 96 08/30/17 15:47 08/30/17 15:47 08/30/17 15:47 08/30/17 15:47 08/30/17 15:47 Laboratory Results 08/30/17 14:15 08/30/17 03:41 08/29/17 08/30/17 08/31/17 05:59 05:59 05:59 Intake Total 2900 2416 2800 Output Total 15 300 Balance 2885 2116 2800 ICD10 Worksheet Patient Problems: Problems Problem Status Onset Chest pain Acute
[2017-08-30] MEDS: ZOLPIDEM TARTRATE 5 MG TAB PO PRN (22:52)
[2017-08-31] MEDS ORDERED: ACETAMINOPHEN 500 MG TAB PO PRN (07:30)
[2017-08-31] MEDS ORDERED: TRIAMCINOLONE 0.1% 15 GM CRTUBE TP PRN (07:30)
[2017-08-31] MEDS ORDERED: CHOLECALCIFEROL VIT D3 1,000 UNITS TAB PO SCH (09:00)
[2017-08-31 11:36] VITALS: BP 137/77
[2017-08-31] MEDS ORDERED: ESTRADIOL 1 MG TAB PO SCH (21:00)
--- NOTE | 2017-08-31 21:36 | GDS ---
[f rep st] DISCHARGE SUMMARY DISCHARGE DIAGNOSES: 1. Cholelithiasis status post cholecystectomy. 2. Chest pain, resolved. 3. Acute blood loss anemia status post 1 unit packed red blood cells. 4. Mild mitral valve regurgitation. CONSULTANTS: 1. Dr. Narinder Gagnon, cardiology. 2. Dr. Shantanu Mcfarland, general surgery. HISTORY: For details please see the history and physical dated August 26, 2017. In brief, the patient is a 62-year-old female with no significant past medical history who was sent to the emergency depar tment with chest pressure. She was admitted to hospital for further management. HOSPITAL COURSE: Patient was admitted to the med/surg unit. A D-dimer was negative. Her EKG was no nischemic, and she had 2 negative troponins. Cardiology was consulted, and she underwent a CT navarro ry angiogram which showed normal coronary arterial system with a normal left ventricular ejection fra ction. In addition, an echocardiogram also showed normal LV function with an ejection fraction of 54 % and no wall motion abnormality. Mild mitral valve regurgitation was noted. She ultimately underwe nt abdominal CT, which showed gallbladder wall thickening as well as significant cholelithiasis on ul trasound. Consideration was given to her chest pain being possibly referred pain from gallbladder et iology. General Surgery was consulted. She underwent laparoscopic cholecystectomy. She did not hav e significant blood loss perioperatively. However, she did drop her hemoglobin to 7.4. On the eveni ng of her surgery, she had an episode of hypotension and tachycardia. She received volume resuscitat ion. In addition, she received 1 unit of packed red blood cells. Her tachycardia and hypotension re solved. She had no hypoxemia. No further chest pain and no pleuritic symptoms. Her hemoglobin impr ainsley from 7.4 to 8.2 after 1 unit of packed red blood cells. She did have findings of a hematoma in the right upper quadrant postoperatively. Abdominal ultrasound was ordered on the day of discharge a nd showed a 3 x 5 cm fluid collection, possibly representing blood products, which is not unexpected postoperatively. There was no free fluid. She had a normal common bile duct diameter and no evidenc e of significant intraabdominal fluid collection or perihepatic hematoma was identified. The patient was tolerating a full diet, was pain free, having stools, voiding well and wished to go home. DISPOSITION: Patient is discharged home in stable condition. FOLLOWUP: 1. She should see Dr. Shantanu Mcfarland, general surgery, in clinic in 3-4 days. 2. ROSELINE Davis, primary care. DISCHARGE MEDICATIONS: Please see [employer] for completed outpatient medication list. She will fay nue p.r.n. Tylenol for pain control as needed. She will continue all other outpatient medications as previously prescribed. /[id number]/MODL
--- NOTE | 2017-10-04 15:22 | GCON ---
[f rep st] CONSULTATION DATE OF CONSULTATION: 08/28/2017 The patient is a 62-year-old female who was admitted for chest and epigastric pain and workup was negative except for the findings of cholecystitis and cholelithiasis. She does have a history of intermittent GI symptoms including diarrhea and bloating with nausea. Gallbladder ultrasound revealed multiple large stones packed in the gallbladder. Liver function tests were normal. Her bile ducts were normal in caliber on ultrasound. PAST MEDICAL HISTORY: Includes diverticulitis with a subsequent colectomy and appendectomy. REVIEW OF SYSTEMS: Negative on a full 10-point review except as related to the HPI. SOCIAL HISTORY: She does not smoke. FAMILY HISTORY: Noncontributory. ALLERGIES: Sulfa. MEDICATIONS: Listed in her chart. PHYSICAL EXAMINATION: GENERAL: An alert, healthy 62-year-old female in no acute distress and afebrile. HEAD AND NECK: The head and neck exam reveals her to be nonicteric without adenopathy or oral lesions. NECK: Supple with full range of motion. No thyromegaly. CHEST: Clear. CARDIAC: Regular rhythm without murmurs. ABDOMEN: Soft and nontender with no masses or organomegaly. EXTREMITIES: Full range of motion, full pulses. NEUROLOGIC: Physiologic and symmetric. PSYCHIATRIC: The psychiatric exam reveals her to be alert, oriented, and cooperative. IMPRESSION: 1. Symptomatic gallstones. 2. Chronic cholecystitis. RECOMMENDATIONS: Would be a laparoscopic cholecystectomy. Plan is to proceed with laparoscopic cholecystectomy. Risks and options have been fully discussed. There is no real need for HIDA scan at this point. /[id number]/MODL MTDD
== END 2017-08-31 15:00 | disposition home or self-care (01) | DRG 418 ==
LOC: F2W 22:11 → OBSVTOIN 08-27 12:24
PROVIDERS: ADMIT Internal Medicine; ATTEND Internal Medicine
PROC: 0FT44ZZ Resection of Gallbladder, Percutaneous Endoscopic Approach (ICD-10-PCS; principal; 2017-08-27)
PROC: 30233N1 Transfusion of Nonautologous Red Blood Cells into Peripheral Vein, Percutaneous Approach (ICD-10-PCS; principal; 2017-08-27)
DX: K80.10 Calculus of gallbladder with chronic cholecystitis without obstruction (principal); D62 Acute posthemorrhagic anemia; R07.89 Other chest pain; I34.0 Nonrheumatic mitral (valve) insufficiency; Z79.890 Hormone replacement therapy
CPT/HCPCS: 84484-PO; G0378; J0694; J1885; J2001; J2250; J2405; J2704; J3010; P9016; Q9967

== ENCOUNTER → 2017-12-05 | Outpatient (CLI) | payer OTHER | LOC: FIMAGING 12:28 | PROVIDERS: ATTEND Obstetrics & Gynecology | DX: Z12.31 Encounter for screening mammogram for malignant neoplasm of breast (principal) ==